=== PATIENT | male | born 1995 | race Caucasian/White ===

== ENCOUNTER 2021-10-01 16:28 | Emergency (ER) | payer OTHER, SELFPAY ==
[2021-10-01] MEDS ORDERED: Ketorolac Tromethamine 30 MG/ML VIAL ONE (17:21)
== END 2021-10-01 18:05 | disposition home or self-care (01) ==
LOC: CSHERS 16:28
DX: S13.4XXA Sprain of ligaments of cervical spine, initial encounter (principal); S29.012A Strain of muscle and tendon of back wall of thorax, initial encounter; F17.290 Nicotine dependence, other tobacco product, uncomplicated; V00-Y99 External causes of morbidity
CPT/HCPCS: 72040; 72070; 96372; J1885

== ENCOUNTER 2021-11-01 10:11 | Emergency (ER) | payer SELFPAY ==
[2021-11-01] MEDS ORDERED: Ibuprofen 200 MG TAB ONE (11:23)
[2021-11-01 16:54] LABS: SARS-CoV-2 PCR by NAA Not Detected (NotDetected)
== END 2021-11-01 11:25 | disposition home or self-care (01) ==
LOC: CSHERS 10:11
DX: S29.012A Strain of muscle and tendon of back wall of thorax, initial encounter (principal); B34.9 Viral infection, unspecified; Z20.822 Contact with and (suspected) exposure to COVID-19; F17.290 Nicotine dependence, other tobacco product, uncomplicated; X58.XXXA Exposure to other specified factors, initial encounter
CPT/HCPCS: 99283; U0003; U0005

== ENCOUNTER 2021-12-03 11:47 | Emergency (ER) | payer OTHER, SELFPAY ==
[2021-12-03] MEDS ORDERED: Ibuprofen 200 MG TAB ONE (12:22)
== END 2021-12-03 12:45 | disposition home or self-care (01) ==
LOC: CSHERS 11:47
DX: S13.4XXA Sprain of ligaments of cervical spine, initial encounter (principal); S29.012A Strain of muscle and tendon of back wall of thorax, initial encounter; F17.290 Nicotine dependence, other tobacco product, uncomplicated; W01.0XXA Fall on same level from slipping, tripping and stumbling without subsequent striking against object, initial encounter
CPT/HCPCS: 72040; 72070